=== PATIENT | female | born 1985 | race African-American/Black ===

== ENCOUNTER 2017-06-20 10:56 | Emergency (ER) | payer OTHER, MEDICARE ==
[~2017-06-20] VITALS: Ht 160 cm; Wt 89.8 kg
[~2017-06-20 10:56] MED LIST: AMITRIPTYLINE H75 M1 PO; AMOXIL500 MG PO; AUGMENTIN 875875 MG PO; BENLYSTA400 MG IV; DILAUDID2 MG PO; ENDOCET 325 MG-1 TA1 PO; FOLIC ACID 1 MG PO; GOLYTELY SOLU4000 ML PO; HYDROXYCHLOROQ200 M1 PO; METHOTREXA50 MG/2 ML PO; NEXIUM 40MG40 MG PO; PERCOCET 325 MG1 TA2 PO; PREDNISONE 10MG10 M1 PO; PREDNISONE5 MG PO; VIBRAMYCIN100 MG PO; VITAMIN D50000 IU PO
[2017-06-20 11:48] LABS: ABSOLUTE BASOPHIL COUNT 0 /CUMM (0.0-0.2); ABSOLUTE EOSINOPHIL COUNT 0 /CUMM (0.0-0.7); ABSOLUTE GRANULOCYTE CT 1.2 /CUMM (1.4-6.5); ABSOLUTE LYMPH COUNT 1.5 /CUMM (1.2-3.4); ABSOLUTE MONOCYTE COUNT 0.5 /CUMM (0.10-0.60); BASOPHIL % 0.5 % (0.0-2.0); EOSINOPHIL % 0.4 % (0-5); GRANULOCYTE % 38.6 % (42.2-75.2); HEMATOCRIT 35.3 % (37-47); MEAN CORPUSCULAR HGB 25.7 PG (27.0-31.0); MEAN CORPUSCULAR HGB CONC 32.1 G/DL (33.0-37.0); MEAN CORPUSCULAR VOLUME 80.1 FL (81.0-99.0); PLATELET COUNT 196 /CUMM (130-400); RED BLOOD CELL CT 4.41 /CUMM (4.20-5.40); WHITE BLOOD CELL COUNT 3.2 /CUMM (4.8-10.8)
--- NOTE | 2017-06-20 11:48 | ED GI/GU/ABDOMINAL COMPLAINT ---
History of Present Illness General Chief Complaint: Female Urogenital Problems Stated Complaint: VAGINAL BLEEDING; 5 WEEKS Source: patient, family Exam Limitations: no limitations Vital Signs & Intake/Output Vital Signs & Intake/Output Vital Signs Date Time Temp Pulse Resp B/P B/P Pulse O2 O2 Flow FiO2 Mean Ox Delivery Rate 06/20 1254 77 20 128/72 98 06/20 1104 98.1 80 18 144/89 99 Room Air Allergies Coded Allergies: NO KNOWN ALLERGIES (07/15/15) Reconcile Medications Belimumab (Benlysta) 400 MG PDS 2 IV MONTHLY LUPUS (Reported) HYDROMORPHONE HCL (Dilaudid) 2 MG TAB 1 TAB PO Q6P PRN PAIN Hydroxychloroquine Sulfate 200 MG TAB 1 TAB PO DAILY LUPUS (Reported) Methotrexate 50 MG/2 ML KAITLYN 6 TAB PO QW LUPUS (Reported) Peg 3350/Na Sulf,Bicarb,Cl/KCl (Golytely Solution) 4,000 ML SOLN.RECON 250 ML PO Q2 CONSTIPATION Prednisone 5 MG TAB 1 TAB PO DAILY LUPUS (Reported) Prednisone 10 MG TABLET 1 TAB PO AD INFLAMMATION TAKE 6 TABS PO DAY 1-3 5 TABS PO DAY 4-6 4 TABS PO DAY 7-9 3 TABS PO DAY 10-12 2 TABS PO DAY 13-15 1 TAB PO DAY 16-18 Triage Note: PT STATES THAT SHE IS 5 WEEKS AND THAT YESTERDAY SHE SPOTTED A LITTLE AND TODAY SHE STARTED TO BLEED BRIGHT RED BLOOD, DESCRIBES IT BEING LIKE HER PERIOD FLOW. DENIES ANY ABD PAIN OR CRAMPING Triage Nurses Notes Reviewed? yes LMP (ages 10-50): 05/14/17 ? Y Is pt currently ? No Onset: Gradual Duration: day(s): Timing: recent history Quality/Severity: cramping, mild Location: suprapubic HPI: 32YO female with hx of lupus presents to ED complaining of vaginal bleeding beginning yesterday afternoon. Patient's last menstrual period was 05/14/17. Patient was due for a period on 06/13/17. Patient had urinary tests performed at clinic which was positive last week. It was estimated patient was about 5 weeks . Patient began having vaginal spotting yesterday with very mild suprapubic cramping beginning this morning. Bleeding became heavier today, patient called on-call [facility] [facility] [employer]PER[facility] who referred her to the emergency department. Patient not complaining of significant abdominal pain at this time. The patient denies vomiting, fevers, chills, urinary symptoms, diarrhea, constipation. (Lara Silva) Past History Travel History Traveled to [place] past 21 day No Medical History Any Pertinent Medical History? see below for history Neurological: NONE EENT: NONE Cardiovascular: NONE Respiratory: NONE Gastrointestinal: NONE Hepatic: NONE Renal: NONE Musculoskeletal: NONE Psychiatric: NONE Endocrine: LUPUS Blood Disorders: anemia Cancer(s): NONE CIRCUITS ENGINEER/Reproductive: NONE Surgical History Surgical History: non-contributory Psychosocial History What is your primary language Lao Tobacco Use: Never used ETOH Use: denies use Illicit Drug Use: denies illicit drug use Family History Hx Contributory? No (Lara Silva) Review of Systems Review of Systems Constitutional: Reports: no symptoms. EENTM: Reports: no symptoms. Respiratory: Reports: no symptoms. Cardiovascular: Reports: no symptoms. GI: Reports: see HPI. Genitourinary: Reports: see HPI. Musculoskeletal: Reports: no symptoms. Skin: Reports: no symptoms. Neurological/Psychological: Reports: no symptoms. Hematologic/Endocrine: Reports: no symptoms. Immunologic/Allergic: Reports: no symptoms. All Other Systems: Reviewed and Negative (Lara Silva) Physical Exam Physical Exam General Appearance: well developed/nourished, no apparent distress, alert, awake Head: atraumatic, normal appearance Eyes: Bilateral: normal appearance. Ears, Nose, Throat, Mouth: hearing grossly normal Neck: normal inspection, supple, full range of motion Respiratory: normal breath sounds, no respiratory distress, lungs clear Cardiovascular: edema Gastrointestinal: normal bowel sounds, soft, non-tender, no organomegaly Back: normal inspection, normal range of motion Extremities: normal range of motion Neurologic/Psych: awake, alert, oriented x 3 Skin: intact, normal color, warm/dry Core Measures ACS in differential dx? No Sepsis Present: No Sepsis Focused Exam Completed? No (Lara Silva) Progress Differential Diagnosis: ectopic , intrauterine , threatened AB , UTI/pyelo Plan of Care: Orders Procedure Date/time Status URINE 06/20 1100 Complete URINALYSIS 06/20 1100 Complete HUMAN BETA HCG TITRE 06/20 1100 Complete COMPREHENSIVE METABOLIC PANEL 06/20 1100 Complete CBC WITHOUT DIFFERENTIAL 06/20 1100 Complete RHOGAM WORK-UP 06/20 1100 Complete Laboratory Tests 06/20/17 1129: Urine Color BLDY H, Urine Clarity CLDY H, Urine pH 7.0, Ur Specific [place] 1.025, Urine Protein 100 H, Urine Ketones NEG, Urine Nitrite POS H, Urine Bilirubin NEG@ICTO, Urine Urobilinogen 1.0, Ur Leukocyte Esterase TRACE H, Ur Microscopic SEDIMENT EXAMINED, Urine RBC PACKD H, Urine WBC 1-3 H, Ur Epithelial Cells MOD H, Urine Bacteria MOD H, Urine Hemoglobin LARGE H, Urine Glucose NEG, Urine Test NEGATIVE 06/20/17 1109: Anion Gap 8, Estimated GFR > 60, BUN/Creatinine Ratio 25.7 H, Glucose 110 H, Calcium 9.4, Total Bilirubin 0.3, AST 22, ALT 16, Alkaline Phosphatase 48, Total Protein 7.3, Albumin 4.0, Globulin 3.3, Albumin/Globulin Ratio 1.2, Beta HCG, Quant 4.1, CBC w Diff NO MAN DIFF REQ, RBC 4.41, MCV 80.1 L, MCH 25.7 L, MCHC 32.1 L, RDW 15.0 H, MPV 10.0, Gran % 38.6 L, Lymphocytes % 45.2, Monocytes % 15.3 H, Eosinophils % 0.4, Basophils % 0.5, Absolute Granulocytes 1.2 L, Absolute Lymphocytes 1.5, Absolute Monocytes 0.5, Absolute Eosinophils 0, Absolute Basophils 0 Patient is too early on in for ultrasound to detect viable IUP. Patient's hormone is very low, 4. Given patient's bleeding with very low hormone is likely she is having threatened miscarriage. Patient to return for outpatient lab and repeat hormone level drawn in 2 days. She has no abdominal pain at this time. The patient was given strict return precautions for heavy bleeding or abdominal pain. Patient does not require rhogam based on her blood type. Remainder of labs are stable. The patient is in no acute distress, vital signs are stable. The patient agrees with the plan of care. The patient was discussed with Dr. Ovalle agrees with this plan. Initial ED EKG: none (Lashawn ROGERS,Lara Wu) Departure Departure Disposition: HOME OR SELF CARE Condition: Stable Clinical Impression Primary Impression: Threatened miscarriage Secondary Impressions: Bleeding in early Referrals: Lala Patrick APRN (PCP/Family) Additional Instructions: You were given a lab slip to have repeat hormone level drawn in 2 days. Follow- up with the [facility] as scheduled on Wednesday. Monitor for signs of worsening symptoms such as heavy bleeding, abdominal pain, fevers. Return with any of these symptoms. Please note that there might be incidental findings in your evaluation that are unrelated to the current emergency department visit. Please notify your primary care doctor about this emergency department visit in order to obtain and review all of the testing performed so that these incidental findings can be monitored as needed. If you had an x-ray performed, please understand that some fractures may not be seen on the initial set of x-rays. If your symptoms persist you might need a repeat set of x-rays to check for such a fracture. If you had a laceration evaluated, please understand that foreign bodies such as glass or wood may not be visible to the naked eye or on plain x-rays. If the wound becomes red, swollen, increasingly more painful or if there is any drainage from the wound, please have it reevaluated by a physician for the possibility of a retained foreign body. If you're unable to follow up as outlined in the discharge instructions please return to the emergency department. Thank you for choosing the [facility] Emergency Department for your care. It was a pleasure to serve you today. Departure Forms: Customer Survey General Discharge Information (Lashawn ROGERS,Lara Wu) PA/SUPERINTENDENT STEVEDORING Co-Sign Statement Statement: ED Attending supervision documentation- [] I saw and evaluated the patient. I have also reviewed all the pertinent lab results and diagnostic results. I agree with the findings and the plan of care as documented in the PA's/SUPERINTENDENT STEVEDORING's documentation. [X] I have reviewed the ED Record and agree with the PA's/SUPERINTENDENT STEVEDORING's documentation. [] Additions or exceptions (if any) to the PAs/SUPERINTENDENT STEVEDORING's note and plan are summarized below: [] (Yamile AVILA,Lavon Hatch)
[2017-06-20 12:54] VITALS: BP 128/72
== END 2017-06-20 12:56 ==
LOC: ERH 10:56
PROVIDERS: Physician Assistant Medical
DX: O20.0 Threatened abortion (principal); O20.9 Hemorrhage in early pregnancy, unspecified; Z3A.01 Less than 8 weeks gestation of pregnancy
CPT/HCPCS: 81001; 81025